=== PATIENT | female | born 1965 | race Caucasian/White ===

== ENCOUNTER → 2017-11-01 | Outpatient (CLI) | payer OTHER ==
[~2017-11-01] MED LIST: CICL.77TC TOP; ERGO50000 PO; EXELON1 EACH TOP; FLUO10 PO; LEVSOD75 PO; LORA.5 PO; MIRT15 PO; NAMENDA XR28 MG; NUEDEXTA 20-101 EACH PO; OMEP20ER; PROACE100; Prozac40 MG PO; QUET25 PO; TIZANIDINE HCL4 MG PO; TOLT4 PO
[2017-11-02 12:31] LABS: Bilirubin, Urine Neg (Neg); Blood, Urine Neg (Neg); Glucose Qualitative, Urine Neg (Neg); Ketones, Urine Neg (Neg); Leukocyte Esterase, Urine 2+ (Neg); Nitrite, Urine Neg (Neg); Protein, Urine 1+ (Neg); Urobilinogen, Urine 1+ (Normal)
[2017-11-02 13:08] LABS: Appearance, Urine Cloudy (Clear); Color, Urine Yellow (P-Yellow)
[2017-11-02 13:09] LABS: Bacteria Few /hpf; Calcium Oxalate Crystals Many /hpf; Mucus Light (0-Heavy); Red Blood Cells, Urine 0-2 /hpf (0-2); Squamous Epithelial Cells Many /hpf (Few)
== END | disposition home or self-care (01) ==
LOC: LAB 11:37 → LAB SHORT 11:37
PROVIDERS: Family Medicine
DX: R10.2 Pelvic and perineal pain (principal)
CPT/HCPCS: 81001; 87086

== ENCOUNTER 2017-12-07 15:14 | Emergency (ER) | payer OTHER ==
[~2017-12-07] VITALS: Ht 170.2 cm; Wt 57.1 kg
[2017-12-07 17:01] LABS: BASOPHILS ABSOLUTE AUTO 0.07 K/mm3 (0.00-0.23); BASOPHILS PERCENT AUTO 1 % (0-2); EOSINOPHILS ABSOLUTE AUTO 0.16 K/mm3 (0.00-0.68); EOSINOPHILS PERCENT AUTO 2 % (0-6); Hematocrit 46.6 % (33.0-51.0); Hemoglobin 15.5 g/dL (11.5-16.0); IMMATURE GRAN ABSOLUTE AUTO 0.04 K/mm3 (0.00-0.10); IMMATURE GRAN PERCENT AUTO 0 % (0-1); LYMPHOCYTES ABSOLUTE AUTO 1.37 K/mm3 (0.84-5.20); LYMPHOCYTES PERCENT AUTO 15 % (21-46); MONOCYTES ABSOLUTE AUTO 0.65 K/mm3 (0.16-1.47); MONOCYTES PERCENT AUTO 7 % (4-13); Mean Corpuscular HGB 30.9 pg (26.0-34.0); Mean Corpuscular HGB Conc 33.3 g/dL (31.5-36.5); Mean Corpuscular Volume 93 fL (80-100); NEUTROPHILS ABSOLUTE AUTO 6.77 K/mm3 (1.96-9.15); NEUTROPHILS PERCENT AUTO 75 % (41-73); Platelet Count 310 K/mm3 (150-400); RDW Coefficient Variation 11.9 % (11.7-14.2); Red Blood Cell Count 5.01 M/mm3 (3.80-5.20); White Blood Cell Count 9.06 K/mm3 (4.00-11.30)
[2017-12-07 17:13] LABS: International Normalized Ratio 1.09; Prothrombin Time Results 11.4 Sec (9.7-11.5)
[2017-12-07 17:23] LABS: Alanine Aminotransfer (ALT/SGP 21 U/L (12-78); Albumin, Blood 4.1 g/dL (3.4-5.0); Alk Phos 100 U/L (50-136); Anion Gap 6 mmol/L (6-16); Aspartate Aminotrans (AST/SGOT 18 U/L (12-37); Bilirubin, Total 0.4 mg/dL (0.1-1.0); Blood Urea Nitrogen 13 mg/dL (8-24); Bun/Creatinine Ratio 18.9 (12.0-20.0); CO2, Blood 31 mmol/L (21-32); Calcium, Blood 9.3 mg/dL (8.5-10.1); Chloride, Blood 107 mmol/L (98-108); Creatinine, Blood 0.69 mg/dL (0.40-1.00); Globulin, Blood 4.1 g/dL (2.2-4.0); Glomerular Filtration Rate >60 (60-); Glucose, Blood 92 mg/dL (70-99); Potassium, Blood 3.6 mmol/L (3.5-5.5); Sodium, Blood 144 mmol/L (136-145); Total Protein, Blood 8.2 g/dL (6.4-8.2)
[2017-12-07 18:43] LABS: Source, Urine Catheter
[2017-12-07 18:48] LABS: Bilirubin, Urine Neg (Neg); Blood, Urine Neg (Neg); Glucose Qualitative, Urine Neg (Neg); Ketones, Urine Neg (Neg); Leukocyte Esterase, Urine 1+ (Neg); Nitrite, Urine Neg (Neg); Protein, Urine Neg (Neg); Specific Gravity, Urine 1.025 (1.003-1.022); Urobilinogen, Urine NORM (Normal)
[2017-12-07 18:54] LABS: Appearance, Urine Clear (Clear); Color, Urine Yellow (P-Yellow)
[2017-12-07 18:56] LABS: Bacteria Not Seen /hpf; Red Blood Cells, Urine Not Seen /hpf (0-2); Squamous Epithelial Cells Not Seen /hpf (Few); White Blood Cells, Urine Not Seen /hpf (0-5)
== END 2017-12-07 20:31 | disposition home or self-care (01) ==
LOC: ER 15:14
PROVIDERS: Emergency Medicine; Physician Assistant
DX: R53.1 Weakness (principal); G20 Parkinson's disease; Z79.899 Other long term (current) drug therapy
CPT/HCPCS: 36415; 71046; 80053; 81001; 85025; 85610; 87086; 93005; 93010; 96360; 96361; 99283; J7030; P9612

== ENCOUNTER → 2018-01-05 | Outpatient (CLI) | payer OTHER ==
[2018-01-05 14:00] LABS: Bilirubin, Urine Neg (Neg); Blood, Urine Neg (Neg); Glucose Qualitative, Urine Neg (Neg); Ketones, Urine Neg (Neg); Leukocyte Esterase, Urine 2+ (Neg); Nitrite, Urine Neg (Neg); Protein, Urine 1+ (Neg); Urobilinogen, Urine NORM (Normal)
[2018-01-05 14:14] LABS: Appearance, Urine Hazy (Clear); Color, Urine Yellow (P-Yellow)
[2018-01-05 14:15] LABS: Hyaline Casts 0-2 /lpf (0-2); Mucus Light (0-Heavy)
[2018-01-05 14:16] LABS: Bacteria Few /hpf; Calcium Oxalate Crystals Mod /hpf; Red Blood Cells, Urine Not Seen /hpf (0-2); Squamous Epithelial Cells Few /hpf (Few); White Blood Cells, Urine 0-2 /hpf (0-5)
== END ==
LOC: LAB SRC 03:00 → LAB SHORT 03:00
PROVIDERS: Registered Nurse Psychiatric/Mental Health
DX: R30.0 Dysuria (principal); R10.2 Pelvic and perineal pain
CPT/HCPCS: 81001

== ENCOUNTER 2018-08-13 18:10 | Inpatient (IN) | payer OTHER ==
[~2018-08-13] VITALS: Ht 170.2 cm; Wt 48.1 kg
[~2018-08-13 18:10] MED LIST changes: -NAMENDA XR28 MG; +NAMENDA XR28 MG PO; -OMEP20ER; +OMEPRAZOLE MAGN20 MG PO
[2018-08-13] MEDS ORDERED: Carbidopa-Levo1 EAC1 PO (20:12)
[2018-08-13 21:06] LABS: BASOPHILS ABSOLUTE AUTO 0.07 K/mm3 (0.00-0.23); BASOPHILS PERCENT AUTO 0 % (0-2); EOSINOPHILS ABSOLUTE AUTO 0.01 K/mm3 (0.00-0.68); EOSINOPHILS PERCENT AUTO 0 % (0-6); Hematocrit 43.9 % (33.0-51.0); Hemoglobin 14.3 g/dL (11.5-16.0); IMMATURE GRAN PERCENT AUTO 1 % (0-1); LYMPHOCYTES ABSOLUTE AUTO 0.52 K/mm3 (0.84-5.20); LYMPHOCYTES PERCENT AUTO 3 % (21-46); MONOCYTES ABSOLUTE AUTO 1.18 K/mm3 (0.16-1.47); MONOCYTES PERCENT AUTO 6 % (4-13); Mean Corpuscular HGB 31.4 pg (26.0-34.0); Mean Corpuscular HGB Conc 32.6 g/dL (31.5-36.5); Mean Corpuscular Volume 96 fL (80-100); Mean Platelet Volume 10.2 fL (9.1-12.4); NEUTROPHILS ABSOLUTE AUTO 17.28 K/mm3 (1.96-9.15); NEUTROPHILS PERCENT AUTO 90 % (41-73); Platelet Count 266 K/mm3 (150-400); RDW Coefficient Variation 12.3 % (11.7-14.2); RDW Standard Deviation 43.7 fL (35.1-46.3); Red Blood Cell Count 4.56 M/mm3 (3.80-5.20); White Blood Cell Count 19.16 K/mm3 (4.00-11.30)
[2018-08-13 21:25] LABS: Anion Gap 7 mmol/L (6-16); Blood Urea Nitrogen 14 mg/dL (8-24); Bun/Creatinine Ratio 21.1 (12.0-20.0); CO2, Blood 29 mmol/L (21-32); Calcium, Blood 8.7 mg/dL (8.5-10.1); Chloride, Blood 108 mmol/L (98-108); Creatinine, Blood 0.66 mg/dL (0.40-1.00); Glomerular Filtration Rate >60 (60-); Glucose, Blood 135 mg/dL (70-99); Potassium, Blood 3.7 mmol/L (3.5-5.5); Sodium, Blood 144 mmol/L (136-145)
--- NOTE | 2018-08-13 22:45 | NUR ---
RECEIVED HAND OFF FROM FEDERICA KWON RN USING SBAR. TRANSPORTED TO ROOM 214 VIA STRETCHER. TRANSFERED TO BED WITH FULL STAFF ASSISTANCE, TOLERATED WELL. AAO TO SELF, FAMILY, AND PLACE. RESPONSES ARE DELAYED AND SOMETIMES HAVE TO BE SINGLE WORD RESPONSES SUCH YES/NO. AT TIMES PT IS UNABLE TO VERBALLY RESPOND AND MUST SQUEEZE FINGERES WITH HER HAND IN A YES OR NO FASHION. LYING IN KRISTEN FOWLERS WITH EYES OPEN. ORIENTED TO ROOM, CALL SYSTEM, AND POC, VOICES UNDERSTANDING. MOM STATES THAT HER MEMORY IS NOT GOOD IT HAS BEEN. STATES THAT PT WILL FORGET SOMETHING THAT WAS SAID A MINUTE AGO. VERY THIN AND FRAIL APPREARANCE. 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 PT WAS ABLE TO PHARMACOLOGIST A CARTON OF MILK WITH HER LEFT HAND AND TAKE A DRINK BUT WAS UNABLE TO PLACE IT BACK ON THE BEDSIDE TABLE OR RELEASE IT. RIGHT AC 20G PIV IS PATENT, FLUSHING WITH EASE. RESPIRATIONS EVEN AND UNLABORED ON ROOM AIR. LUNG SOUNDS CLEAR BILATERALLY. ABDOMEN SOFT AND NONDISTENDED. BOWEL SOUNDS PRESENT IN ALL QUADS. INCONTINENT OF BOWEL AND BLADDER, 16FR DAY PLACED WHILE IN ER, DRAINING CLEAR YELLOW URINE TO GRAVITY. SCD PLACED TO LLE PER MD ORDERS. DENIES FURTHER NEEDS AT THIS TIME. ADMISSION ASSESSMENT IN PROGRESS. INFORMEATION GIVEN BY MOMMARCO. SAFETY MEASURES IN PLACE. WILL CONTINUE TO MONITOR.
[2018-08-14 04:14] LABS: BASOPHILS ABSOLUTE AUTO 0.04 K/mm3 (0.00-0.23); BASOPHILS PERCENT AUTO 0 % (0-2); EOSINOPHILS ABSOLUTE AUTO 0.03 K/mm3 (0.00-0.68); EOSINOPHILS PERCENT AUTO 0 % (0-6); Hemoglobin 11.6 g/dL (11.5-16.0); IMMATURE GRAN ABSOLUTE AUTO 0.04 K/mm3 (0.00-0.10); IMMATURE GRAN PERCENT AUTO 0 % (0-1); LYMPHOCYTES ABSOLUTE AUTO 1.08 K/mm3 (0.84-5.20); LYMPHOCYTES PERCENT AUTO 10 % (21-46); MONOCYTES ABSOLUTE AUTO 1.04 K/mm3 (0.16-1.47); MONOCYTES PERCENT AUTO 9 % (4-13); Mean Corpuscular HGB 31.3 pg (26.0-34.0); Mean Corpuscular HGB Conc 33.1 g/dL (31.5-36.5); Mean Corpuscular Volume 94 fL (80-100); Mean Platelet Volume 10.3 fL (9.1-12.4); NEUTROPHILS ABSOLUTE AUTO 8.95 K/mm3 (1.96-9.15); NEUTROPHILS PERCENT AUTO 80 % (41-73); Platelet Count 225 K/mm3 (150-400); RDW Coefficient Variation 12.4 % (11.7-14.2); RDW Standard Deviation 42.5 fL (35.1-46.3); Red Blood Cell Count 3.71 M/mm3 (3.80-5.20); White Blood Cell Count 11.18 K/mm3 (4.00-11.30)
[2018-08-14 04:28] LABS: International Normalized Ratio 1.08; Prothrombin Time Results 11.4 Sec (9.7-11.5)
[2018-08-14 04:37] LABS: Alanine Aminotransfer (ALT/SGP 9 U/L (12-78); Albumin, Blood 3.2 g/dL (3.4-5.0); Albumin/Globulin Ratio 1.1 (0.8-1.8); Alk Phos 78 U/L (50-136); Anion Gap 8 mmol/L (6-16); Aspartate Aminotrans (AST/SGOT 24 U/L (12-37); Bilirubin, Total 0.6 mg/dL (0.1-1.0); Blood Urea Nitrogen 19 mg/dL (8-24); CO2, Blood 28 mmol/L (21-32); Calcium, Blood 7.8 mg/dL (8.5-10.1); Chloride, Blood 109 mmol/L (98-108); Creatinine, Blood 0.68 mg/dL (0.40-1.00); Globulin, Blood 2.9 g/dL (2.2-4.0); Glomerular Filtration Rate >60 (60-); Glucose, Blood 115 mg/dL (70-99); Potassium, Blood 3.7 mmol/L (3.5-5.5); Sodium, Blood 145 mmol/L (136-145); Total Protein, Blood 6.1 g/dL (6.4-8.2)
--- NOTE | 2018-08-14 05:36 | NUR ---
LYING IN SEMI FOWLERS WITH EYES CLOSED. PAIN IS MANAGED WITH CURRENT PAIN REGIEMEN. REPOSITIONED Q2HRS AND PRN FOR COMFORT, TOLERATING WELL. CONTINUED CONFUSION WITH HALLUCINATIONS NOTED. NO FURTHER CHANGES SINCE START OF SHIFT. SAFETY MEASURES IN PLACE. WILL GIVE HAND OFF TO ONCOMING SHIFT USING SBAR.
--- NOTE | 2018-08-14 05:40 | NUR ---
LYING IN HIGH FOWLERS WITH EYES CLOSED. PAIN IS MANAGED WITH CURRENT PAIN REGIEMEN. REPOSITIONED Q2HRS AND PRN FOR COMFORT, TOLERATING WELL. NO FURTHER CHANGES SINCE START OF SHIFT. SAFETY MEASURES IN PLACE. WILL GIVE HAND OFF TO ONCOMING SHIFT USING SBAR.
--- NOTE | 2018-08-14 13:41 | NUR ---
PT TO OR AT 1305.
--- NOTE | 2018-08-14 15:32 | NUR ---
PT OPENS EYES TO VERBAL STIMULI DOES NOT FOLLOW INSTRUCTIONS TO DEEP BREATHE OR COUGH OR TO MOVE EXREMITIES . NO FACIAL GRIMACE NOTED RESP E/U . OK TO MARTYFER TO HER ROOM AT THIS TIME
--- NOTE | 2018-08-14 16:33 | NUR ---
PT ARRIVED BACK TO ROOM AT APROXIMATELY 1602. SHE IS ALERT AND ORIENTED BUT SLOW TO RESPOND. FAMILY PRESENT AND PT RESPONDS WELL TO THEM. PT REPORTED PAIN TO HER R HIP. SHE WAS GIVEN IV FENTANYL TO MANAGE PAIN. VSS. WILL CONTINUE TO MONITOR.
--- NOTE | 2018-08-14 17:49 | NUR ---
SHIFT SUMMARY PAIN HAS BEEN MANAGED WITH IV FENTANYL POST OP. SHE HAS DIFFICULTY COMMUNICATING AND DOES BEST WITH YES/NO QUESTIONS. SHE IS ALERT AND ORIENTED. FAMILY HAS BEEN AT THE BEDSIDE. PT REQUIRES ASSISTANCE REPOSITIONING. VSS. WILL MONITOR UNTIL REPORT TO ONCOMING RN.
--- NOTE | 2018-08-14 18:06 | NUR ---
RISK FOR SUICIDE PT'S FAMILY STATED THEY THINK THE PT HAS LEWY BODY DEMENTIA. THIS RN ASKED IF THE PT HAS HALLUCINATIONS AND THE FAMILY REPORTED SHE HAS AUDITORY HALLICINATIONS. THEY REPORTED SHE HEARS VOICES THAT TELL HER TO KILL HERSELF. PT'S MOTHER REPORTED THAT THE PT HAS HAD A PLAN IN THE PAST; THAT PLAN WAS TO TAKE AN OVERDOSE OF TYLENOL, WHICH SHE NEVER ACTED ON. PT SEES PSYCHIATRIST OUTPATIENT. SUICIDE SCREENING FROM THE ER WAS NEGATIVE. PT WAS REASSESSED AFTER FAMILY REPORTED THAT THE PT HAD AUDITORY HALLUCINATIONS, AND FOUND TO HAVE A POSSITIVE SCREENING. PT HAS LIMITED ABILITY TO COMMUNICATE BUT WAS ABLE TO ANSWER THE YES/NO SCREENING QUESTIONS. PT WILL BE MOVED TO APPROPRIATE ROOM. FAMILY IS AT THE BEDSIDE AT THIS TIME.
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
--- NOTE | 2018-08-14 20:46 | NUR ---
CLARIFIED SUICIDE PRECAUTIONS AND 1:[address] CHRISTENSEN GIVEN THE PATIENT'S PHYSICAL AND MENTAL LIMITATIONS WHICH WOULD RENDER HER UNABLE TO CARRY OUT A PLAN EVEN IF SHE HAD ONE. AT THIS TIME WITH YES/NO QUESTIONS SHE DENIES ANY SI. SHE IS MOSTLY NONVERBAL AND WILL OCCASIONALLY GIVE ONE WORD ANSWERS ONLY, OTHERWISE SHE POINTS TO ONE HAND OR THE OTHER FOR TWO DIFFERENT OPTIONS. SHE IS POD 0 TODAY FROM A RIGHT HIP REPAIR. AT THIS TIME DR. CHRISTENSEN WANTS TO KEEP THE SI PRECAUTIONS IN PLACE AND LET THE ATTENDING PHYSICIAN IN THE MORNING DETERMINE IF WE NEED TO MAINTAIN THE PRECAUTIONS AFTER TONIGHT. 1:1 SITTER IN ROOM, MAINTAINING PRECAUTIONS AT THIS TIME.
[2018-08-15 05:23] LABS: BASOPHILS ABSOLUTE AUTO 0.04 K/mm3 (0.00-0.23); BASOPHILS PERCENT AUTO 0 % (0-2); EOSINOPHILS ABSOLUTE AUTO 0.05 K/mm3 (0.00-0.68); EOSINOPHILS PERCENT AUTO 1 % (0-6); Hemoglobin 8.5 g/dL (11.5-16.0); IMMATURE GRAN ABSOLUTE AUTO 0.03 K/mm3 (0.00-0.10); IMMATURE GRAN PERCENT AUTO 0 % (0-1); LYMPHOCYTES ABSOLUTE AUTO 1.42 K/mm3 (0.84-5.20); LYMPHOCYTES PERCENT AUTO 14 % (21-46); MONOCYTES ABSOLUTE AUTO 1.12 K/mm3 (0.16-1.47); MONOCYTES PERCENT AUTO 11 % (4-13); Mean Corpuscular HGB 31.8 pg (26.0-34.0); Mean Corpuscular HGB Conc 32.7 g/dL (31.5-36.5); Mean Platelet Volume 10.7 fL (9.1-12.4); NEUTROPHILS ABSOLUTE AUTO 7.38 K/mm3 (1.96-9.15); NEUTROPHILS PERCENT AUTO 74 % (41-73); Platelet Count 149 K/mm3 (150-400); RDW Coefficient Variation 12.4 % (11.7-14.2); RDW Standard Deviation 43.9 fL (35.1-46.3); Red Blood Cell Count 2.67 M/mm3 (3.80-5.20); White Blood Cell Count 10.04 K/mm3 (4.00-11.30)
[2018-08-15 05:35] LABS: Mean Corpuscular Volume 97 fL (80-100)
--- NOTE | 2018-08-15 07:34 | NUR ---
SHIFT SUMMARY PT IS POD 1 R HIP REPAIR. RIGHT HIP HAS HAD SOME SIGNIFICANT SWELLING OVERNIGHT, IT IS WARM AND PINK. BULKY DRESSING IN PLACE, C/D/I AT TIME OF ASSESSMENT. SHE IS NONVERBAL AND ANSWERS SIMPLE Y/N OR 2 CHOICE QUESTIONS. 1:1 SITTER REMAINED PRESENT OVERNIGHT, SI PRECAUTIONS IN PLACE. SHE DENIED SI LAST NIGHT WITH Y/N QUESTIONS. PT HAS VERY LIMITED MOBILITY AND CONTRACTURES OF BOTH HANDS. MEPILEX DRESSINGS TO BILAT HEELS AND COCCYX. DAY PATENT, STAT LOCK IN PLACE. REPORT PASSED TO ONCOMING SHIFT.
--- NOTE | 2018-08-15 09:11 | NUR ---
08/15/18 0911 Laura Christianson VERIFICATIONS: EDIT CHART.
--- NOTE | 2018-08-15 12:01 | NUR ---
I encountered patient's mother, Sendy, in the bahena way as she was trying to locate her daughter's room and so I was abble to indentify myself and my department. Sendy was very helpful in explaining her daughter's health history and she gave me some communication tips because patient is unable to speak due to the progression of her disease. Sendy also informed me about patient's struggle with depression. I entered the room with Sendy and franklin present. I spoke to patient at length and normalized her experince, explored sources of meaning and dignity, (based on Sendy's understanding of her daughter's belief system) I quoted inspirational scripture and provided prayer. Patient indicated affirmation of understanding as I spoke to her, gave permission for prayer, closed her eyes during the prayer and agreed to have me visit again. I also spoke at length to Sendy about her compassion fatigue and personal struggles regarding prison care for her daughter. I provided pastoral direction and prayer. She expressed gratitude.
--- NOTE | 2018-08-15 13:34 | NUR ---
Pt gave consent for clinical nursing assistant Angie Arita to care for her 08-16-18
--- NOTE | 2018-08-15 15:50 | NUR ---
Permission to access Patient gave this student nurse permission to access chart.
--- NOTE | 2018-08-15 18:48 | NUR ---
SHIFT SUMMARY PT AWAKE, ALERT, PLEASANT, MOSTLY NONVERBAL, COMMUNICATES Y/N Q'S. POD#1 R HIP REPAIR, BULKY DRESSING APPEARS CDI. TEDS, SCDS. UP TO CHAIR FOR MEALS. SITTER CANCELLED BY HOSPITALIST THIS SHIFT. PAIN MANAGED WITH 5 MG NORCO. ENEDELIA PO, NEEDS FULL MEAL ASSIST R/T HAND CONTRACTURES. AWAITING SPEECH EVAL, ENEDELIA FULL LIQUIDS, NEEDS ADDITIONAL TIME TO SWALLOW THIN LIQUIDS, EATS SITTING STRAIGHT UP FOR 30+ MIN FOLLOWING MEALS. DAY PATENT & DRAINING YELLOW URINE, STAT LOCK IN PLACE, OFF FLOOR. MEPILEX ON COCCYX AND HEELS AND HEELS ELEVATED. STAND/PIVOT TRANSFER, NWB RLE. WILL CTM & TX PER EMAR UNTIL REPORT GIVEN TO ONCOMING NOC RN.
--- NOTE | 2018-08-16 05:47 | NUR ---
SHIFT SUMMARY: NO ACUTE CHANGES THIS SHIFT. MILD FEVER NOTED IN BEGINNING OF SHIFT, GIVEN NORCO FOR FEVER AND PAIN. PT AFEBRILE AFTER ADMINISTRATION. PT REPOSITIONED FOR COMFORT T/O NIGHT. RESPONDING WITH "YES" OR "NO" TO ALL QUESTIONS. ADEQAUTE AMT OF URINE DRAINED FROM DAY.
[2018-08-16 05:55] LABS: BASOPHILS ABSOLUTE AUTO 0.06 K/mm3 (0.00-0.23); BASOPHILS PERCENT AUTO 1 % (0-2); EOSINOPHILS ABSOLUTE AUTO 0.43 K/mm3 (0.00-0.68); EOSINOPHILS PERCENT AUTO 5 % (0-6); Hematocrit 22.9 % (33.0-51.0); Hemoglobin 7.3 g/dL (11.5-16.0); IMMATURE GRAN ABSOLUTE AUTO 0.06 K/mm3 (0.00-0.10); IMMATURE GRAN PERCENT AUTO 1 % (0-1); LYMPHOCYTES ABSOLUTE AUTO 1.43 K/mm3 (0.84-5.20); LYMPHOCYTES PERCENT AUTO 15 % (21-46); MONOCYTES ABSOLUTE AUTO 0.83 K/mm3 (0.16-1.47); MONOCYTES PERCENT AUTO 9 % (4-13); Mean Corpuscular HGB 31.3 pg (26.0-34.0); Mean Corpuscular HGB Conc 31.9 g/dL (31.5-36.5); Mean Corpuscular Volume 98 fL (80-100); Mean Platelet Volume 10.7 fL (9.1-12.4); NEUTROPHILS ABSOLUTE AUTO 6.84 K/mm3 (1.96-9.15); NEUTROPHILS PERCENT AUTO 71 % (41-73); NRBC ABSOLUTE 0.03 K/mm3 (0.00-0.02); NRBC Auto 0.3 /100 WBC (0.0-0.2); Platelet Count 134 K/mm3 (150-400); RDW Coefficient Variation 12.7 % (11.7-14.2); RDW Standard Deviation 45.3 fL (35.1-46.3); Red Blood Cell Count 2.33 M/mm3 (3.80-5.20); White Blood Cell Count 9.65 K/mm3 (4.00-11.30)
[2018-08-16 06:05] LABS: Anion Gap 7 mmol/L (6-16); Blood Urea Nitrogen 17 mg/dL (8-24); Bun/Creatinine Ratio 26.8 (12.0-20.0); CO2, Blood 27 mmol/L (21-32); Calcium, Blood 7.3 mg/dL (8.5-10.1); Chloride, Blood 108 mmol/L (98-108); Creatinine, Blood 0.63 mg/dL (0.40-1.00); Glomerular Filtration Rate >60 (60-); Glucose, Blood 95 mg/dL (70-99); Potassium, Blood 3.8 mmol/L (3.5-5.5); Sodium, Blood 142 mmol/L (136-145)
--- NOTE | 2018-08-16 16:28 | NUR ---
I asked patient's mother if the patient would benefit from inspirational guitar music and singing and mother enthusiatically affirmed that she would andthat there is a long history of music in their family. I entered patient's room and asked her if I could play guitar and sing for her and she said, "Yes." I then played 3 songs that I wrote and told the stories behind those songs. I asked patient if they were meaningful to her and she affirmed that they were. Patient showed signs of an elevated mood
[2018-08-17 04:58] LABS: BASOPHILS ABSOLUTE AUTO 0.05 K/mm3 (0.00-0.23); BASOPHILS PERCENT AUTO 1 % (0-2); EOSINOPHILS ABSOLUTE AUTO 0.57 K/mm3 (0.00-0.68); EOSINOPHILS PERCENT AUTO 6 % (0-6); Hematocrit 31.7 % (33.0-51.0); Hemoglobin 10.3 g/dL (11.5-16.0); IMMATURE GRAN ABSOLUTE AUTO 0.07 K/mm3 (0.00-0.10); IMMATURE GRAN PERCENT AUTO 1 % (0-1); LYMPHOCYTES PERCENT AUTO 17 % (21-46); MONOCYTES ABSOLUTE AUTO 0.79 K/mm3 (0.16-1.47); MONOCYTES PERCENT AUTO 8 % (4-13); Mean Corpuscular HGB 30.5 pg (26.0-34.0); Mean Corpuscular HGB Conc 32.5 g/dL (31.5-36.5); Mean Corpuscular Volume 94 fL (80-100); Mean Platelet Volume 10.7 fL (9.1-12.4); NEUTROPHILS ABSOLUTE AUTO 6.47 K/mm3 (1.96-9.15); NEUTROPHILS PERCENT AUTO 68 % (41-73); Platelet Count 179 K/mm3 (150-400); RDW Coefficient Variation 14.3 % (11.7-14.2); RDW Standard Deviation 48.9 fL (35.1-46.3); Red Blood Cell Count 3.38 M/mm3 (3.80-5.20); White Blood Cell Count 9.55 K/mm3 (4.00-11.30)
[2018-08-17 05:20] LABS: Anion Gap 5 mmol/L (6-16); Blood Urea Nitrogen 16 mg/dL (8-24); Bun/Creatinine Ratio 27.4 (12.0-20.0); CO2, Blood 30 mmol/L (21-32); Calcium, Blood 7.7 mg/dL (8.5-10.1); Chloride, Blood 110 mmol/L (98-108); Creatinine, Blood 0.58 mg/dL (0.40-1.00); Glomerular Filtration Rate >60 (60-); Glucose, Blood 87 mg/dL (70-99); Potassium, Blood 4.1 mmol/L (3.5-5.5); Sodium, Blood 145 mmol/L (136-145)
--- NOTE | 2018-08-17 06:09 | NUR ---
SUMMARY POD #3 PT TOLERATED BLOOD TRANSFUSION WITH NO PROBLEMS, VSS, PT TURNED Q2 HRS. BULKY DRSG REMOVED, AQUACEL DRSG APPLIED, OLIVIA INTACT, NO S/S OF INFECTION. PO FLUIDS OFFERED FREQUENTLY. CALL LIGHT IN REACH, WCTM
[2018-08-17 06:37] LABS: Albumin, Blood 2.4 g/dL (3.4-5.0); Magnesium, Blood 2.1 mg/dL (1.6-2.4)
[2018-08-17] MEDS ORDERED: PROZAC20 MG PO (11:28)
[2018-08-17] MEDS ORDERED: LEVSOD100 PO (11:30)
[2018-08-17] MEDS ORDERED: ASPI325 PO (11:33)
[2018-08-17] MEDS ORDERED: DOCU100 PO (11:33)
[2018-08-17] MEDS ORDERED: MIRALAX17 GM PO (11:34)
[2018-08-17] MEDS ORDERED: HYDR1TAB94 PO (11:34)
--- NOTE | 2018-08-17 13:25 | NUR ---
PT. DISCHARGED HOME VIA [facility]SP[facility]. IV AND DAY CATHETER DC'D PRIOR TO DISCHARGE. PT. 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 PT. ONLY GIVES ONE WORD ANSWERES. DC INSTRUCTIONS GIVEN TO MOTHER WHO VERBALIZED AND SIGNED UNDERSTANDING OF ORDERS. 2 AQUACEL DRESSINGS GIVEN FOR WOUND CHANGE ON 08/23/18.
== END 2018-08-17 13:34 | disposition home or self-care (01) | DRG 481 ==
LOC: ER 18:10 → SURS 21:57
PROVIDERS: Internal Medicine; Orthopaedic Surgery; Physician Assistant; ADMIT Internal Medicine
PROC: 30233N1 Transfusion of Nonautologous Red Blood Cells into Peripheral Vein, Percutaneous Approach (ICD-10-PCS; 2018-08-14)
PROC: 0QS636Z Reposition Right Upper Femur with Intramedullary Internal Fixation Device, Percutaneous Approach (ICD-10-PCS; principal; 2018-08-14 13:00)
DX: S72.141A Displaced intertrochanteric fracture of right femur, initial encounter for closed fracture (principal); D62 Acute posthemorrhagic anemia; W19.XXXA Unspecified fall, initial encounter; G20 Parkinson's disease; G71.00 Muscular dystrophy, unspecified; F32.9 Major depressive disorder, single episode, unspecified; E03.9 Hypothyroidism, unspecified; D64.9 Anemia, unspecified; F03.90 Unspecified dementia, unspecified severity, without behavioral disturbance, psychotic disturbance, mood disturbance, and anxiety; E83.51 Hypocalcemia; E87.6 Hypokalemia; F79 Unspecified intellectual disabilities
CPT/HCPCS: 36415; 36430; 51702; 71045; 73502; 80048; 80053; 82040; 83735; 85025; 85610; 86850; 86900; 86901; 86923; 92610; 93005; 93010; 96374; 96375; 97110; 97161; 97530; 99284-25; C1713; C1769; J0610; J0690; J1100; J2370; J2405; J3010; J7030; J7050; P9016

== ENCOUNTER 2018-08-30 16:25 | Emergency (ER) | payer OTHER ==
[~2018-08-30] VITALS: Ht 165.1 cm; Wt 56.7 kg
[~2018-08-30 16:25] MED LIST changes: +ASPI325 PO; +Carbidopa-Levo1 EAC1 PO; +DOCU100 PO; +HYDR1TAB94 PO; +LEVSOD100 PO; +MIRALAX17 GM PO; +PROZAC20 MG PO
== END 2018-08-30 20:22 | disposition home or self-care (01) ==
LOC: ER 16:25
DX: M79.652 Pain in left thigh (principal); M25.551 Pain in right hip; M79.604 Pain in right leg; M79.605 Pain in left leg; Z79.899 Other long term (current) drug therapy; Z79.82 Long term (current) use of aspirin; G20 Parkinson's disease
CPT/HCPCS: 73522; 93970; 99284-25

== ENCOUNTER 2019-11-08 10:22 | Emergency (ER) | payer OTHER ==
[~2019-11-08] VITALS: Ht 170.2 cm; Wt 68.0 kg
[~2019-11-08 10:22] MED LIST changes: -MIRT15 PO; +MIRT30 PO
[2019-11-08] MEDS ORDERED: TIZA4 PO (10:31)
[2019-11-08 11:14] LABS: BASOPHILS ABSOLUTE AUTO 0.11 K/mm3 (0.00-0.23); BASOPHILS PERCENT AUTO 2 % (0-2); EOSINOPHILS ABSOLUTE AUTO 0.28 K/mm3 (0.00-0.68); EOSINOPHILS PERCENT AUTO 4 % (0-6); Hematocrit 48.3 % (33.0-51.0); Hemoglobin 15.7 g/dL (11.5-16.0); IMMATURE GRAN ABSOLUTE AUTO 0.02 K/mm3 (0.00-0.10); IMMATURE GRAN PERCENT AUTO 0 % (0-1); LYMPHOCYTES ABSOLUTE AUTO 1.23 K/mm3 (0.84-5.20); LYMPHOCYTES PERCENT AUTO 16 % (21-46); MONOCYTES ABSOLUTE AUTO 0.45 K/mm3 (0.16-1.47); MONOCYTES PERCENT AUTO 6 % (4-13); Mean Corpuscular HGB 30.4 pg (26.0-34.0); Mean Corpuscular HGB Conc 32.5 g/dL (31.5-36.5); Mean Corpuscular Volume 94 fL (80-100); NEUTROPHILS ABSOLUTE AUTO 5.48 K/mm3 (1.96-9.15); NEUTROPHILS PERCENT AUTO 72 % (41-73); Platelet Count 268 K/mm3 (150-400); RDW Coefficient Variation 12.9 % (11.7-14.2); RDW Standard Deviation 44.2 fL (35.1-46.3); Red Blood Cell Count 5.16 M/mm3 (3.80-5.20); White Blood Cell Count 7.57 K/mm3 (4.00-11.30)
[2019-11-08 11:25] LABS: Alanine Aminotransfer (ALT/SGP 21 U/L (12-78); Albumin, Blood 3.8 g/dL (3.4-5.0); Albumin/Globulin Ratio 1.1 (0.8-1.8); Alk Phos 77 U/L (50-136); Anion Gap 6 mmol/L (6-16); Aspartate Aminotrans (AST/SGOT 14 U/L (12-37); Bilirubin, Total 0.4 mg/dL (0.1-1.0); Blood Urea Nitrogen 16 mg/dL (8-24); Bun/Creatinine Ratio 34.5 (12.0-20.0); CO2, Blood 27 mmol/L (21-32); Calcium, Blood 8.7 mg/dL (8.5-10.1); Chloride, Blood 111 mmol/L (98-108); Creatinine, Blood 0.46 mg/dL (0.40-1.00); Globulin, Blood 3.4 g/dL (2.2-4.0); Glomerular Filtration Rate >60 (60-); Glucose, Blood 122 mg/dL (70-99); Potassium, Blood 3.5 mmol/L (3.5-5.5); Sodium, Blood 144 mmol/L (136-145); Total Protein, Blood 7.2 g/dL (6.4-8.2)
[2019-11-08] MEDS ORDERED: TRIDERM28.4 GM TOP (12:14)
== END 2019-11-08 13:29 | disposition home or self-care (01) ==
LOC: ER 10:22
PROVIDERS: Physician Assistant
DX: R05 Cough (principal); L25.9 Unspecified contact dermatitis, unspecified cause; E03.9 Hypothyroidism, unspecified; F32.9 Major depressive disorder, single episode, unspecified; Z79.899 Other long term (current) drug therapy; Z79.82 Long term (current) use of aspirin
CPT/HCPCS: 36415; 71046; 80053; 85025; 99284-25

== ENCOUNTER 2020-05-04 11:31 | Emergency (ER) | payer OTHER ==
[~2020-05-04 11:31] MED LIST changes: +TIZA4 PO; +TRIDERM28.4 GM TOP
[2020-05-05] MEDS ORDERED: BACL10 PO (15:52)
== END 2020-05-04 13:13 | disposition home or self-care (01) ==
LOC: ER 11:31
DX: R41.82 Altered mental status, unspecified (principal); G20 Parkinson's disease; Z79.899 Other long term (current) drug therapy
CPT/HCPCS: 99284-25; G0008; Q2038

== ENCOUNTER 2020-05-05 10:09 | Inpatient (IN) | payer OTHER ==
[~2020-05-05] VITALS: Ht 162.6 cm; Wt 62.4 kg
[2020-05-05 10:39] LABS: BASOPHILS ABSOLUTE AUTO 0.12 K/mm3 (0.00-0.23); BASOPHILS PERCENT AUTO 1 % (0-2); EOSINOPHILS ABSOLUTE AUTO 0.05 K/mm3 (0.00-0.68); EOSINOPHILS PERCENT AUTO 0 % (0-6); Hematocrit 46.2 % (33.0-51.0); Hemoglobin 15.3 g/dL (11.5-16.0); IMMATURE GRAN ABSOLUTE AUTO 0.17 K/mm3 (0.00-0.10); IMMATURE GRAN PERCENT AUTO 1 % (0-1); LYMPHOCYTES ABSOLUTE AUTO 0.83 K/mm3 (0.84-5.20); LYMPHOCYTES PERCENT AUTO 6 % (21-46); MONOCYTES ABSOLUTE AUTO 0.82 K/mm3 (0.16-1.47); MONOCYTES PERCENT AUTO 6 % (4-13); Mean Corpuscular HGB 30.9 pg (26.0-34.0); Mean Corpuscular HGB Conc 33.1 g/dL (31.5-36.5); Mean Corpuscular Volume 93 fL (80-100); Mean Platelet Volume 10.1 fL (9.1-12.4); NEUTROPHILS ABSOLUTE AUTO 12.01 K/mm3 (1.96-9.15); NEUTROPHILS PERCENT AUTO 86 % (41-73); Platelet Count 308 K/mm3 (150-400); RDW Coefficient Variation 12.2 % (11.7-14.2); Red Blood Cell Count 4.95 M/mm3 (3.80-5.20)
[2020-05-05 10:54] LABS: International Normalized Ratio 1.03
[2020-05-05 10:57] LABS: Alanine Aminotransfer (ALT/SGP 22 U/L (12-78); Albumin, Blood 3.7 g/dL (3.4-5.0); Albumin/Globulin Ratio 0.9 (0.8-1.8); Alk Phos 93 U/L (50-136); Anion Gap 11 mmol/L (6-16); Aspartate Aminotrans (AST/SGOT 18 U/L (12-37); Bilirubin, Total 0.6 mg/dL (0.1-1.0); Blood Urea Nitrogen 15 mg/dL (8-24); Bun/Creatinine Ratio 33.9 (12.0-20.0); CO2, Blood 23 mmol/L (21-32); Chloride, Blood 111 mmol/L (98-108); Creatinine, Blood 0.44 mg/dL (0.40-1.00); Globulin, Blood 3.9 g/dL (2.2-4.0); Glomerular Filtration Rate >60 (60-); Glucose, Blood 143 mg/dL (70-99); Potassium, Blood 3.2 mmol/L (3.5-5.5); Sodium, Blood 145 mmol/L (136-145); Total Protein, Blood 7.6 g/dL (6.4-8.2)
[2020-05-05 13:59] LABS: Source, Urine Catheter
[2020-05-05 14:02] LABS: Appearance, Urine Clear (Clear); Bilirubin, Urine Neg (Neg); Blood, Urine 1+ (Neg); Color, Urine Yellow (P-Yellow); Glucose Qualitative, Urine Neg (Neg); Ketones, Urine Neg (Neg); Leukocyte Esterase, Urine 1+ (Neg); Nitrite, Urine Neg (Neg); Protein, Urine 1+ (Neg); Specific Gravity, Urine 1.015 (1.003-1.022); Urobilinogen, Urine NORM (Normal)
[2020-05-05 14:16] LABS: Bacteria Few /hpf; Red Blood Cells, Urine 0-2 /hpf (0-2); Squamous Epithelial Cells Rare /hpf (Few)
[2020-05-05] MEDS ORDERED: BACL10 PO (15:52)
[2020-05-05 18:09] LABS: PCO2 Arterial 36.5 mmHg (35-45); pH Blood Arterial 7.45 (7.35-7.45)
[2020-05-05 18:11] LABS: PO2 Arterial 49.8 mmHg (80-100)
[2020-05-05 21:01] LABS: PCO2 Arterial 38.7 mmHg (35-45); PO2 Arterial 81.4 mmHg (80-100); pH Blood Arterial 7.42 (7.35-7.45)
[2020-05-06 04:35] LABS: BASOPHILS ABSOLUTE AUTO 0.08 K/mm3 (0.00-0.23); BASOPHILS PERCENT AUTO 1 % (0-2); EOSINOPHILS ABSOLUTE AUTO 0.05 K/mm3 (0.00-0.68); EOSINOPHILS PERCENT AUTO 0 % (0-6); Hematocrit 39.6 % (33.0-51.0); IMMATURE GRAN ABSOLUTE AUTO 0.07 K/mm3 (0.00-0.10); IMMATURE GRAN PERCENT AUTO 0 % (0-1); LYMPHOCYTES ABSOLUTE AUTO 0.76 K/mm3 (0.84-5.20); LYMPHOCYTES PERCENT AUTO 5 % (21-46); MONOCYTES ABSOLUTE AUTO 1.02 K/mm3 (0.16-1.47); MONOCYTES PERCENT AUTO 6 % (4-13); Mean Corpuscular HGB 30.8 pg (26.0-34.0); Mean Corpuscular HGB Conc 32.8 g/dL (31.5-36.5); Mean Corpuscular Volume 94 fL (80-100); Mean Platelet Volume 10.2 fL (9.1-12.4); NEUTROPHILS ABSOLUTE AUTO 14.67 K/mm3 (1.96-9.15); NEUTROPHILS PERCENT AUTO 88 % (41-73); Platelet Count 206 K/mm3 (150-400); RDW Coefficient Variation 12.5 % (11.7-14.2); RDW Standard Deviation 42.8 fL (35.1-46.3); Red Blood Cell Count 4.22 M/mm3 (3.80-5.20); White Blood Cell Count 16.65 K/mm3 (4.00-11.30)
[2020-05-06 04:50] LABS: Anion Gap 6 mmol/L (6-16); Blood Urea Nitrogen 11 mg/dL (8-24); Bun/Creatinine Ratio 28.7 (12.0-20.0); CO2, Blood 26 mmol/L (21-32); Calcium, Blood 8.2 mg/dL (8.5-10.1); Chloride, Blood 112 mmol/L (98-108); Creatinine, Blood 0.38 mg/dL (0.40-1.00); Glomerular Filtration Rate >60 (60-); Glucose, Blood 130 mg/dL (70-99); Magnesium, Blood 2.3 mg/dL (1.6-2.4); Potassium, Blood 3.6 mmol/L (3.5-5.5); Sodium, Blood 144 mmol/L (136-145)
[2020-05-07 03:36] LABS: BASOPHILS ABSOLUTE AUTO 0.06 K/mm3 (0.00-0.23); BASOPHILS PERCENT AUTO 1 % (0-2); EOSINOPHILS ABSOLUTE AUTO 0.14 K/mm3 (0.00-0.68); EOSINOPHILS PERCENT AUTO 1 % (0-6); Hematocrit 35.5 % (33.0-51.0); Hemoglobin 11.6 g/dL (11.5-16.0); IMMATURE GRAN PERCENT AUTO 1 % (0-1); LYMPHOCYTES ABSOLUTE AUTO 0.66 K/mm3 (0.84-5.20); LYMPHOCYTES PERCENT AUTO 5 % (21-46); MONOCYTES ABSOLUTE AUTO 0.78 K/mm3 (0.16-1.47); MONOCYTES PERCENT AUTO 6 % (4-13); Mean Corpuscular HGB 31.3 pg (26.0-34.0); Mean Corpuscular HGB Conc 32.7 g/dL (31.5-36.5); Mean Corpuscular Volume 96 fL (80-100); Mean Platelet Volume 10.4 fL (9.1-12.4); NEUTROPHILS ABSOLUTE AUTO 10.38 K/mm3 (1.96-9.15); NEUTROPHILS PERCENT AUTO 86 % (41-73); Platelet Count 159 K/mm3 (150-400); RDW Coefficient Variation 12.4 % (11.7-14.2); RDW Standard Deviation 43.3 fL (35.1-46.3); Red Blood Cell Count 3.71 M/mm3 (3.80-5.20); White Blood Cell Count 12.12 K/mm3 (4.00-11.30)
[2020-05-07 04:02] LABS: Anion Gap 7 mmol/L (6-16); Blood Urea Nitrogen 10 mg/dL (8-24); Bun/Creatinine Ratio 27.5 (12.0-20.0); CO2, Blood 25 mmol/L (21-32); Chloride, Blood 112 mmol/L (98-108); Creatinine, Blood 0.36 mg/dL (0.40-1.00); Glomerular Filtration Rate >60 (60-); Glucose, Blood 100 mg/dL (70-99); Potassium, Blood 3.2 mmol/L (3.5-5.5); Sodium, Blood 144 mmol/L (136-145)
[2020-05-08] MEDS ORDERED: AMOCLA500 PO (13:28)
== END 2020-05-08 13:32 | disposition home or self-care (01) | DRG 871 ==
LOC: ER 10:09 → PCU 15:12 → MEDS 05-07 11:51
PROVIDERS: Emergency Medicine; Internal Medicine; Nurse Practitioner Acute Care; ADMIT Internal Medicine
DX: A41.9 Sepsis, unspecified organism (principal); G92 Toxic encephalopathy; J69.0 Pneumonitis due to inhalation of food and vomit; J96.01 Acute respiratory failure with hypoxia; E87.2 Acidosis; Z20.828 Contact with and (suspected) exposure to other viral communicable diseases; R65.20 Severe sepsis without septic shock; E03.9 Hypothyroidism, unspecified; E86.0 Dehydration; E87.6 Hypokalemia; F32.9 Major depressive disorder, single episode, unspecified; F79 Unspecified intellectual disabilities; G20 Parkinson's disease; G71.00 Muscular dystrophy, unspecified; K21.9 Gastro-esophageal reflux disease without esophagitis; F02.80 Dementia in other diseases classified elsewhere, unspecified severity, without behavioral disturbance, psychotic disturbance, mood disturbance, and anxiety
CPT/HCPCS: 36415; 36600; 51702; 71045; 71260; 80048; 80053; 81001; 82803; 83605; 83735; 83880; 84145; 84484; 85025; 85379; 85610; 85730; 87040; 87077; 87086; 87186; 92526; 92610; 93005; 93010; 93970; 94660; 94762; 96365; 99285-25; C9113; J0295; J0456; J0696; J1650; J3475; J3480; J7050; J7120; P9612; Q9967; U0003

== ENCOUNTER 2020-05-09 11:01 | Emergency (ER) | payer OTHER ==
[~2020-05-09] VITALS: Ht 165.1 cm; Wt 65.8 kg
[~2020-05-09 11:01] MED LIST changes: +AMOCLA500 PO; +BACL10 PO
== END 2020-05-09 13:57 | disposition home or self-care (01) ==
LOC: ER 11:01
DX: M24.562 Contracture, left knee (principal); E03.9 Hypothyroidism, unspecified; G20 Parkinson's disease; F02.80 Dementia in other diseases classified elsewhere, unspecified severity, without behavioral disturbance, psychotic disturbance, mood disturbance, and anxiety; F32.9 Major depressive disorder, single episode, unspecified; Z79.899 Other long term (current) drug therapy
CPT/HCPCS: 29505; 73562-LT; 99283-25

== ENCOUNTER 2020-05-14 09:54 | Emergency (ER) | payer OTHER ==
[~2020-05-14] VITALS: Ht 167.6 cm; Wt 65.8 kg
[2020-05-14] MEDS ORDERED: FLUO10 PO (10:14)
[2020-05-14] MEDS ORDERED: TIZA4 (10:15)
[2020-05-14 10:42] LABS: Source, Urine Catheter
[2020-05-14 10:47] LABS: BASOPHILS ABSOLUTE AUTO 0.09 K/mm3 (0.00-0.23); BASOPHILS PERCENT AUTO 1 % (0-2); EOSINOPHILS ABSOLUTE AUTO 0.46 K/mm3 (0.00-0.68); EOSINOPHILS PERCENT AUTO 5 % (0-6); Hematocrit 44.1 % (33.0-51.0); Hemoglobin 14.1 g/dL (11.5-16.0); IMMATURE GRAN ABSOLUTE AUTO 0.05 K/mm3 (0.00-0.10); IMMATURE GRAN PERCENT AUTO 1 % (0-1); LYMPHOCYTES ABSOLUTE AUTO 1.48 K/mm3 (0.84-5.20); LYMPHOCYTES PERCENT AUTO 14 % (21-46); MONOCYTES ABSOLUTE AUTO 0.82 K/mm3 (0.16-1.47); MONOCYTES PERCENT AUTO 8 % (4-13); Mean Corpuscular HGB 30.3 pg (26.0-34.0); Mean Corpuscular Volume 95 fL (80-100); Mean Platelet Volume 9.6 fL (9.1-12.4); NEUTROPHILS ABSOLUTE AUTO 7.36 K/mm3 (1.96-9.15); NEUTROPHILS PERCENT AUTO 72 % (41-73); Platelet Count 421 K/mm3 (150-400); RDW Coefficient Variation 12.7 % (11.7-14.2); RDW Standard Deviation 43.6 fL (35.1-46.3); Red Blood Cell Count 4.66 M/mm3 (3.80-5.20); White Blood Cell Count 10.26 K/mm3 (4.00-11.30)
[2020-05-14 10:48] LABS: Appearance, Urine Clear (Clear); Bilirubin, Urine Neg (Neg); Blood, Urine 3+ (Neg); Color, Urine Yellow (P-Yellow); Glucose Qualitative, Urine Neg (Neg); Ketones, Urine Neg (Neg); Leukocyte Esterase, Urine Neg (Neg); Nitrite, Urine Neg (Neg); Protein, Urine Neg (Neg); Specific Gravity, Urine 1.015 (1.003-1.022); Urobilinogen, Urine NORM (Normal)
[2020-05-14 11:04] LABS: Bacteria Few /hpf; Squamous Epithelial Cells Rare /hpf (Few)
[2020-05-14 11:05] LABS: Amorphous Light (0-Heavy)
[2020-05-14 11:14] LABS: Alanine Aminotransfer (ALT/SGP 16 U/L (12-78); Albumin, Blood 3.3 g/dL (3.4-5.0); Albumin/Globulin Ratio 0.8 (0.8-1.8); Alk Phos 182 U/L (50-136); Anion Gap 7 mmol/L (6-16); Aspartate Aminotrans (AST/SGOT 12 U/L (12-37); Bilirubin, Total 0.6 mg/dL (0.1-1.0); Blood Urea Nitrogen 9 mg/dL (8-24); Bun/Creatinine Ratio 19.8 (12.0-20.0); CO2, Blood 29 mmol/L (21-32); Calcium, Blood 8.7 mg/dL (8.5-10.1); Chloride, Blood 109 mmol/L (98-108); Creatinine, Blood 0.45 mg/dL (0.40-1.00); Globulin, Blood 4.3 g/dL (2.2-4.0); Glomerular Filtration Rate >60 (60-); Glucose, Blood 85 mg/dL (70-99); Potassium, Blood 3.3 mmol/L (3.5-5.5); Sodium, Blood 145 mmol/L (136-145); Total Protein, Blood 7.6 g/dL (6.4-8.2)
== END 2020-05-14 13:00 | disposition home or self-care (01) ==
LOC: ER 09:54
PROVIDERS: Emergency Medicine
DX: R19.5 Other fecal abnormalities (principal); R10.30 Lower abdominal pain, unspecified; E03.9 Hypothyroidism, unspecified; F32.9 Major depressive disorder, single episode, unspecified; K21.9 Gastro-esophageal reflux disease without esophagitis; G20 Parkinson's disease; F02.80 Dementia in other diseases classified elsewhere, unspecified severity, without behavioral disturbance, psychotic disturbance, mood disturbance, and anxiety; Z79.899 Other long term (current) drug therapy
CPT/HCPCS: 36415; 80053; 81001; 81025; 82272; 84703; 85025; 99283

== ENCOUNTER 2020-05-15 09:44 | Emergency (ER) | payer OTHER ==
[~2020-05-15] VITALS: Ht 162.6 cm; Wt 54.4 kg
[~2020-05-15 09:44] MED LIST changes: +TIZA4
== END 2020-05-15 11:30 | disposition home or self-care (01) ==
LOC: ER 09:44
DX: R19.5 Other fecal abnormalities (principal); G20 Parkinson's disease; F02.80 Dementia in other diseases classified elsewhere, unspecified severity, without behavioral disturbance, psychotic disturbance, mood disturbance, and anxiety; E03.9 Hypothyroidism, unspecified; F32.9 Major depressive disorder, single episode, unspecified; K21.9 Gastro-esophageal reflux disease without esophagitis; Z79.899 Other long term (current) drug therapy
CPT/HCPCS: 82272; 99283